=== PATIENT | female | born 1990 | race Caucasian/White ===

== ENCOUNTER → 2018-09-19 | Outpatient (CLI) | payer BC ==
[~2018-09-19] MED LIST: ACHD5005 PO; CEPH500C PO; DOXY100C2 PO; FERR325C PO; HYDR115S2 PO; IBP600T1 PO; NAPR-243 PO; NITR-65 PO; PRD20T PO; PREN1TAB25 PO; TRM50T PO
--- NOTE | 2018-09-19 14:32 | Diagnostic Imaging Report ---
PROCEDURE: US Non-ob pelvis comp/trans. TECHNIQUE: Multiple real-time grayscale images were obtained of the pelvis in various projections endovaginally. Transabdominal imaging was also performed. INDICATION: Pelvic pain and abnormal uterine bleeding. FINDINGS: The uterus measures 7.6 x 6.1 x 4.8 cm. Endometrium is 8 mm in thickness. Minimal fluid in the endometrial canal is seen. No myometrial mass is detected. The right ovary measures 3.7 x 2.4 x 2.3 cm and the left ovary measures 1.6 x 1.3 x 1.3 cm. There is blood flow to both ovaries. No adnexal mass or free fluid is seen. IMPRESSION: There is some fluid in the endometrial canal. The study is otherwise unremarkable. Dictated by: Dictated on workstation # [id number]
== END ==
LOC: RAD 12:22
PROVIDERS: ATTEND Family Medicine
DX: N93.9 Abnormal uterine and vaginal bleeding, unspecified (principal); R10.2 Pelvic and perineal pain
CPT/HCPCS: 76830; 76856

== ENCOUNTER → 2021-09-13 | Outpatient (CLI) | payer BC ==
[~2021-09-13] VITALS: Ht 64 cm; Wt 68.0 kg
[~2021-09-13] MED LIST changes: +ACETAMINOPHEN 500 MG TAB (TYLENOL) PO PRN; +CASIRIVIMAB/IMDEVIMAB 1,200 MG in NS (IVPB) 250 ML IV ONE; +EPINEPHrine INJECTION 1 MG/ML AMP IM PRN; +ONDANSETRON 4 MG/2 ML (SDV) Z0FRAN IV PRN; +diphenhydrAMINE 50 MG/ML INJ (BENADRYL) IV PRN
[2021-09-13 13:33] VITALS: BP 108/82
[2021-09-13 14:35] VITALS: BP 108/76
== END ==
LOC: INFUSION 12:43
PROVIDERS: ATTEND Physician Assistant
DX: U07.1 COVID-19 (principal)

== ENCOUNTER 2023-01-19 05:34 | Outpatient (CLI) | payer BC ==
[~2023-01-19] VITALS: Ht 162.6 cm; Wt 76.1 kg
[~2023-01-19 05:34] MED LIST changes: -ACETAMINOPHEN 500 MG TAB (TYLENOL) PO PRN; -CASIRIVIMAB/IMDEVIMAB 1,200 MG in NS (IVPB) 250 ML IV ONE; -EPINEPHrine INJECTION 1 MG/ML AMP IM PRN; -ONDANSETRON 4 MG/2 ML (SDV) Z0FRAN IV PRN; -diphenhydrAMINE 50 MG/ML INJ (BENADRYL) IV PRN
[2023-01-19] MEDS ORDERED: AMPH30TA2 PO (10:20)
== END 2023-01-19 10:32 | disposition home or self-care (01) ==
LOC: PREOP 05:34
PROVIDERS: ATTEND Surgery
DX: Z01.818 Encounter for other preprocedural examination (principal)

== ENCOUNTER 2023-01-25 11:35 | Day surgery (SDC) | payer BC ==
[2023-01-25] VITALS (11 sets, daily range): BP systolic 103–123; BP diastolic 76–94
[~2023-01-25] VITALS: Ht 162.5 cm; Wt 76.1 kg
[~2023-01-25 11:35] MED LIST changes: +AMPH30TA2 PO
[2023-01-25] MEDS ORDERED: ceFAZolin INJECTION 2,000 MG in NS (IVPB) 50 ML IV ONE (12:15)
[2023-01-25] MEDS ORDERED: NS (IVPB) 50 ML ONE (12:17)
[2023-01-25] MEDS ORDERED: ceFAZolin INJECTION 2,000 MG ONE (12:17)
[2023-01-25] MEDS: LACTATED RINGERS 1,000 ML IV PRN ×3 (12:32→19:34)
[2023-01-25] MEDS ORDERED: MIDAZOLAM 2 MG/2 ML (VERSED) VIAL IVP ONE (12:45)
--- NOTE | 2023-01-25 13:24 | Progress Note-Pre Operative ---
Pre-Operative Progress Note Date of Available H&P: Jan 17, 2023 Date H&P Reviewed: Jan 25, 2023 Time H&P Reviewed: 13:22 History & Physical: H&P Reviewed, Patient Examed, No changes noted Pre-Operative Diagnosis: Incisional/Ventral hernia, GERD JUAN JOSE COTTRELL DO Jan 25, 2023 13:24
--- NOTE | 2023-01-25 13:30 | Anesthesia-General Post-Op ---
MAC Patient Condition Mental Status/LOC: Same as Preop Cardiovascular: Satisfactory Nausea/Vomiting: Absent Respiratory: Satisfactory Pain: Controlled Complications: Absent Post Op Complications Complications None Follow Up Care/Instructions Patient Instructions None needed. Anesthesiology Discharge Order Discharge Order Patient is doing well, no complaints, stable vital signs, no apparent adverse anesthesia problems. No complications reported per nursing. MASOUD CROWE CRNA Jan 25, 2023 13:30
[2023-01-25] MEDS ORDERED: fentaNYL INJ 100 MCG/2 ML AMP ONE (14:11)
[2023-01-25] MEDS ORDERED: GLYCOPYRROLATE 0.2 MG/ML (ROBINUL) 2 ML VIAL ONE (14:11)
[2023-01-25] MEDS ORDERED: LIDOCAINE PF 2% 5 ML (XYLOCAINE) VIAL ONE (14:11)
[2023-01-25] MEDS ORDERED: proPOfol 200 MG/20 ML (DIPRIVAN) VIAL IV ONE (14:11)
[2023-01-25] MEDS ORDERED: ONDANSETRON 4 MG/2 ML (SDV) Z0FRAN ONE (14:11)
[2023-01-25] MEDS ORDERED: MIDAZOLAM 2 MG/2 ML (VERSED) VIAL ONE (14:12)
[2023-01-25] MEDS ORDERED: BUP/EPI 0.5% 1:200,000 (SENSORCAINE) 30 ML VIAL ONE (14:19)
[2023-01-25] MEDS ORDERED: BUP/EPI 0.5% 1:200,000 (SENSORCAINE) 30 ML VIAL INJ ONE (16:20)
[2023-01-25] MEDS ORDERED: morphine INJ 10 MG/ML 1ML (SYR OR VIAL) ONE (17:31)
--- NOTE | 2023-01-25 17:39 | Anesthesia-General Post-Op ---
General Patient Condition Mental Status/LOC: Same as Preop Cardiovascular: Satisfactory Nausea/Vomiting: Absent Respiratory: Satisfactory Pain: Controlled Complications: Absent Post Op Complications Complications None Follow Up Care/Instructions Patient Instructions None needed. Anesthesia/Patient Condition Patient Condition Patient is doing well, no complaints, stable vital signs, no apparent adverse anesthesia problems. No complications reported per nursing. BRISEYDA LESLIE CRNA Jan 25, 2023 17:39
[2023-01-25] MEDS ORDERED: morphine INJ 10 MG/ML 1ML (SYR OR VIAL) IVP ONE (17:45)
[2023-01-25] MEDS ORDERED: PROMETHAZINE INJ 25 MG/ML (PHENERGAN) AMP IVP ONE (17:45)
[2023-01-25] MEDS ORDERED: HYDROmorphone 2 MG/ML VIAL (DILAUDID) IV ONE (17:45)
[2023-01-25] MEDS ORDERED: ONDANSETRON 4 MG/2 ML (SDV) Z0FRAN IVP PRN (17:45)
--- NOTE | 2023-01-25 18:10 | Progress Note-Post Operative ---
Post-Operative Progess Note Surgeon (s)/Elevator Dispatcher (s) Surgeon JUAN JOSE COTTRELL DO Elevator Dispatcher: Radha Pre-Operative Diagnosis Incisional/Ventral hernia Post-Operative Diagnosis Same they were incarcerated- there were 3 defects, with bridging they measured appx 6cm Procedure & Operative Findings Date of Procedure 01/25/23 Procedure Performed/Findings PROCEDURE: Laparoscopic Ventral/Incisional hernia repair with mesh. COMPLICATIONS: None. INDICATIONS: The patient is a 32, female with three incarcerated ventral hernias, they has continued to increase in size and cause discomfort. The patient was explained the risk and benefits of the procedure and wished to proceed with the procedure. Consent was signed on the chart. DESCRIPTION OF PROCEDURE: The patient was taken into the operating suite, prepped and draped in sterile fashion. Surgical pause was performed. Local anesthetic was infiltrated in left upper quadrant. A #11 blade scalpel was used to make a small skin i ncision. Cautery was used to dissect down to the fascia, which was then scored and divided the muscle, went through the posterior sheath and a balloon trocar was inserted into the abdomen. The abdomen was then insufflated. Could see two defects on the abdominal wall. An 8 mm tobotic trocar was placed in the left lower quadrant and another 8 mm robotic trocar was placed in appx 10cm away from the other two, about in line with the umbilics. Then started taking down the preperitoneal fat in order to see the defects. Actually found three all them had fat in them, the uppermost defect had the most fat; appeared to be 4-5 ball of fat. There was bridging in between the defects; which were about 1.5-2cm long in the transverse direction and 0.5cm long in the vertical direction. With the bridging the defect was about 6cm long; picture taken. Echo Ventralight mesh was then inserted in the abdomen grabbed through a stab incision; elected to use the 10 x 15cm oval mesh. The balloon was inflated on the mesh. Circumferential tacks were placed with a SecureStrap Tacker. Had placed a 5mm Versastep port on the right side of the abdomen to help with tacking. The balloon was then removed and inner crown was created as well. The mesh was tacked with pressure being decreased. The 12 mm fascial defect was then closed using 0 Vicryl. The abdomen was then desufflated,the trocars were removed. The skin was then closed using 4-0 Monocryl in a running subcuticular fashion. The abdomen was washed and dried and Skin Affix was placed over the incisions. The patient tolerated procedure well without any complications. She was taken to recovery room in stable condition. Dr. Garcia helped to make incisions, close incisions, identify anatomy, and hold anatomy out of the way. Anesthesia Type GET Estimated Blood Loss Estimated blood loss (mL): scant Specimens/Packing Specimens Removed none JUAN JOSE COTTRELL DO Jan 25, 2023 18:10
--- NOTE | 2023-01-25 18:13 | Progress Note-Post Operative ---
Post-Operative Progess Note Surgeon (s)/Biochemical Engineer (s) Surgeon JUAN JOSE COTTRELL DO Biochemical Engineer: none Pre-Operative Diagnosis GERD Post-Operative Diagnosis Gastritis Hiatal Hernia Esophagitis possibly Ortiz's Procedure & Operative Findings Date of Procedure 01/25/23 Procedure Performed/Findings PROCEDURE NOTE: Informed consent was obtained, the patient was in the OR suite, was supine and this procedure was done at the end of the Herniarraphy. The scope was inserted down the mouth through the esophagus into the stomach. On the way down, noted some mild-moderate esophagitis, took a picture, pushed into the stomach, pushed past the antrum into the duodenum. Duodenum looked good. Pulled back and did a biopsy of antrum, then retroflexed the scope, saw a grade I AFS hiatal hernia, took a picture of this and then pulled the scope into the GE junction, took another picture of the hiatal hernia and then did a biopsy of the GE junction. Pushed the scope back into the stomach, suctioned all the air out of the stomach. At this point pulled the scope up the esophagus and out the mouth. The patient tolerated the procedure, and she recovered in endoscopy suite. Anesthesia Type GET Estimated Blood Loss Estimated blood loss (mL): scant Specimens/Packing Specimens Removed antral bx Body of stomach bx GE jxn bx x 2 JUAN JOSE COTTRELL DO Jan 25, 2023 18:13
[2023-01-25] MEDS ORDERED: ACHD5005 PO (18:14)
--- NOTE | 2023-01-25 18:15 | Endoscopy Discharge Instruct ---
Endo Procedure/Findings Findings 1.: Gastritis 2.: Ortiz's Esophagus 3.: Hiatal Hernia Discharge Instructions - Activity: You might feel a little sleepy until tomorrow. This is due to the medicine you received to relax you. Until tomorrow, you should: NOT drive a car, operate machinery or power tools. NOT drink any alcoholic beverages. NOT make any important decisions or sign importortant papers. Do not return to work until tomorrow, unless otherwise instructed. Resume previous activities tomorrow. Diet: Start by taking liquids. If you tolerate liquids, advance to solid food. 1.: EGD in 1 year Notify Physician - If you experience excessive bleeding, unusual abdominal pain, fever, or chest pain, contact your doctor immediately. JUAN JOSE COTTRELL DO Jan 25, 2023 18:15
--- NOTE | 2023-01-25 18:16 | Discharge Inst-Surgical ---
Discharge Inst-Surgical Depart Medication/Instructions New, Converted or Re-Newed RX: Transmitted to Pharmacy Patient Instructions Follow up Appt: Make appointment for 1 week. [phone] Instructions: No lifting greater than 20 pounds. No strenuous activity. May shower in 24 hours, no tub bath or soaking. Use incentive spirometer at home as directed. No Smoking Skin/Wound Care: May remove bandages in am. You need to leave the Dermabond on incision it will fall off on it's own. Symptoms to Report: Appetite Changes, Extremity Discoloration, Numbness/Tingling, Swelling Increased, Bleeding Excessive, Eyesight Changes, Pain Increased, Urine Color Change, Constipation(Persistent), Fever over 101 degree F, Pain/Pressure in chest, Urinating Difficulty, Cough Up/Vomit Blood, Heart Beat Irreg/Pounding, Pain/Pressure in jaw, Cramps in feet or legs, Lightheadedness, Pain/Pressure in shoulder, Diarrhea(Persistent), Memory Changes Suddenly, Questions/Concerns, Weight gain consecutive days, Dizziness/Fainting, Nausea/Vomiting, Shortness of Breath, Weight gain over 2 pounds If questions or concerns contact your physician Or seek help at emergency department. Activity Activity as Tolerated: Yes Activity Instructions: Avoid Stress to Incision Driving Instructions: No Driving/Refer to Dr. Alba Discharge Diet: No Restrictions Diet After 24 Hours: Clear Liquid if Nauseous If Any Problems/Questions/Issu: Contact Your Physician, Go to Emergency Room Skin/Wound Care Infection Signs and Symptoms: Increased Redness, Foul Odor of Wound, Increased Drainage, Skin Itchy or Has a Rash, Increased Swelling, Temperature Above 101 F Wound Care Comment: heating pad to shoulder or neck tonight for pain Bathing Instructions: Shower Stitches/Tell/Dermabond Dis: Dermabond Ice Pack: Ice On and Off Site JUAN JOSE COTTRELL DO Jan 25, 2023 18:16
[2023-01-25] MEDS ORDERED: HYDROcodone/APAP 5 MG/325 MG (LORTAB) TAB PO ONE ×2 (18:30→19:00)
== END 2023-01-25 20:00 | disposition home or self-care (01) ==
LOC: SDC 11:35
PROVIDERS: ATTEND Surgery
DX: K29.50 Unspecified chronic gastritis without bleeding (principal); K43.0 Incisional hernia with obstruction, without gangrene; K21.00 Gastro-esophageal reflux disease with esophagitis, without bleeding; K44.9 Diaphragmatic hernia without obstruction or gangrene; E66.9 Obesity, unspecified; Z68.28 Body mass index [BMI] 28.0-28.9, adult
CPT/HCPCS: 43239; 49594; 84703; 87081; 88305; C1781